=== PATIENT | male | born 1955 | race Hispanic/Latino ===

== ENCOUNTER 2020-11-09 19:42 | Observation (INO) | payer OTHER ==
[~2020-11-09] VITALS: Ht 180.3 cm; Wt 112.5 kg
[2020-11-09] MEDS ORDERED: ASPIRIN 81 MG CHEW TAB PO ONE (20:15)
[2020-11-09 20:29] LABS: BASOPHILS % 0.5 % (0.0-1.0); EOSINOPHILS # (AUTO) 0.1 (0.0-0.4); EOSINOPHILS % 1.9 % (0.0-6.0); HEMATOCRIT 46.4 % (38.2-49.6); HEMOGLOBIN 15.7 g/dL (14.0-18.0); LYMPHOCYTES # (AUTO) 2.5 (1.0-3.2); LYMPHOCYTES % 33.2 % (18.0-39.1); MEAN CORPUSCULAR HEMOGLOBIN 29.8 pg (28-32); MEAN CORPUSCULAR HGB CONC 33.8 g/dL (31-35); MEAN CORPUSCULAR VOLUME 88.2 fL (81-99); MONOCYTES # (AUTO) 0.6 (0.2-0.8); MONOCYTES % 7.7 % (4.4-11.3); NEUTROPHILS # (AUTO) 4.2 (2.1-6.9); NEUTROPHILS % 55.9 % (38.7-80.0); PLATELET COUNT 294 x10e3/uL (140-360); RED BLOOD COUNT 5.26 x10e6/uL (4.3-5.7); RED CELL DISTRIBUTION WIDTH 13.1 % (11.7-14.4)
[2020-11-09 20:45] LABS: ALBUMIN 4.1 g/dL (3.5-5.0); ALBUMIN/GLOBULIN RATIO 1.1 (0.8-2.0); ANION GAP 13.1 mmol/L (8-16); CALCIUM 9.3 mg/dL (8.4-10.2); CREATININE, SERUM 0.77 mg/dL (0.72-1.25); POTASSIUM 4.1 mmol/L (3.5-5.1)
[2020-11-09 20:52] LABS: CREATINE KINASE MB 1.3 ng/mL (0-5.0)
[2020-11-09] MEDS ORDERED: IOPAMIDOL 370 MG/ML 200 ML INFUS..BTL INJ ONE (21:24)
[2020-11-09] MEDS ORDERED: SODIUM CHLORIDE 0.9% 50ML 50 ML ONE (21:24)
[2020-11-10] VITALS (13 sets, daily range): BP systolic 111–158; BP diastolic 67–92
[2020-11-10] MEDS ORDERED: ASPIRIN 81 MG CHEW TAB PO ONE (00:45)
[2020-11-10] MEDS ORDERED: MORPHINE SULFATE INJ 4 MG/ML INJ 1ML IV PRN (00:45)
[2020-11-10] MEDS: MORPHINE SULFATE INJ 4 MG/ML INJ 1ML IV PRN (01:46)
[2020-11-10] MEDS: ONDANSETRON HCL INJ 2MG/ML 2ML 2 MG/ML VIAL IV PRN (01:46)
[2020-11-10] MEDS ORDERED: LISINOPRIL5 MG PO (06:48)
[2020-11-10 08:12] LABS: CREATINE KINASE MB 1.9 ng/mL (0-5.0)
[2020-11-10] MEDS ORDERED: HEPARIN SOD (PORCINE) 1000 UNIT/ML 30ML ONE (09:53)
[2020-11-10] MEDS ORDERED: MIDAZOLAM HCL 2 MG/2 ML VIAL ONE (09:53)
[2020-11-10] MEDS ORDERED: LIDOCAINE HCL 2% LOCAL 20 ML VIAL ONE (09:54)
[2020-11-10] MEDS ORDERED: SODIUM CHLORIDE 0.9% 1000ML 1,000 ML ONE (09:54)
[2020-11-10] MEDS ORDERED: IOPAMIDOL 370 MG/ML 200 ML INFUS..BTL INJ ONE (09:54)
[2020-11-10] MEDS ORDERED: FENTANYL CITRATE/PF 100MCG/2 ML INJ ONE (09:54)
[2020-11-10] MEDS ORDERED: HEPARIN SOD/SOD CHLORIDE 2,000 ML ONE (09:54)
[2020-11-10] MEDS ORDERED: NITROGLYCERIN/D5W 200 MCG/ML 0 ML ONE (09:54)
[2020-11-10] MEDS: METOPROLOL SUCCINATE 25 MG TAB XL PO SCH (13:16)
[2020-11-10] MEDS: PANTOPRAZOLE SOD 40 MG TABEC PO SCH (13:17)
[2020-11-10 15:43] LABS: CREATINE KINASE MB 1.8 ng/mL (0-5.0)
[2020-11-11] VITALS (8 sets, daily range): BP systolic 122–148; BP diastolic 77–84
[2020-11-11 06:21] LABS: BASOPHILS % 0.4 % (0.0-1.0); EOSINOPHILS # (AUTO) 0.1 (0.0-0.4); EOSINOPHILS % 1.9 % (0.0-6.0); HEMATOCRIT 43.4 % (38.2-49.6); HEMOGLOBIN 14.3 g/dL (14.0-18.0); LYMPHOCYTES # (AUTO) 1.8 (1.0-3.2); LYMPHOCYTES % 24.2 % (18.0-39.1); MEAN CORPUSCULAR HEMOGLOBIN 29.8 pg (28-32); MEAN CORPUSCULAR HGB CONC 32.9 g/dL (31-35); MEAN CORPUSCULAR VOLUME 90.4 fL (81-99); MONOCYTES # (AUTO) 0.7 (0.2-0.8); NEUTROPHILS # (AUTO) 4.7 (2.1-6.9); NEUTROPHILS % 63.4 % (38.7-80.0); PLATELET COUNT 241 x10e3/uL (140-360); RED CELL DISTRIBUTION WIDTH 13.2 % (11.7-14.4)
[2020-11-11 07:33] LABS: ALBUMIN 3.7 g/dL (3.5-5.0); ALBUMIN/GLOBULIN RATIO 1.4 (0.8-2.0); ANION GAP 13.1 mmol/L (8-16); CALCIUM 8.8 mg/dL (8.4-10.2); CREATININE, SERUM 0.83 mg/dL (0.72-1.25); POTASSIUM 4.1 mmol/L (3.5-5.1)
[2020-11-11] MEDS: METOPROLOL SUCCINATE 25 MG TAB XL PO SCH (08:28)
[2020-11-11] MEDS: PANTOPRAZOLE SOD 40 MG TABEC PO SCH (08:28)
[2020-11-11] MEDS: ONDANSETRON HCL INJ 2MG/ML 2ML 2 MG/ML VIAL IV PRN (08:31)
[2020-11-11] MEDS: MORPHINE SULFATE INJ 4 MG/ML INJ 1ML IV PRN (08:31)
[2020-11-11] MEDS ORDERED: PANTOPRAZOLE SO40 MG PO (08:34)
[2020-11-11] MEDS ORDERED: TOPROL XL25 MG PO (08:34)
[2020-11-11 12:38] LABS: CHOL/HDL RATIO 4.2 (3.9-4.7)
== END 2020-11-11 10:35 | disposition home or self-care (01) ==
LOC: ER 20:10 → ERHOLD 11-10 00:47 → MED/SURG 11-10 02:08
PROVIDERS: ADMIT Internal Medicine; ATTEND Internal Medicine
DX: I25.110 Atherosclerotic heart disease of native coronary artery with unstable angina pectoris (principal); I24.9 Acute ischemic heart disease, unspecified; I10 Essential (primary) hypertension; I73.9 Peripheral vascular disease, unspecified; Z20.822 Contact with and (suspected) exposure to COVID-19; E66.9 Obesity, unspecified; Z68.34 Body mass index [BMI] 34.0-34.9, adult; I77.811 Abdominal aortic ectasia; M54.10 Radiculopathy, site unspecified
CPT/HCPCS: 36415; 71260; 80053; 80061; 82550; 82553; 83880; 84484; 85025; 85379; 93005; 93306; 93458; 99152; 99153; 99284; C1760; C1766; C1769; C1887; G0378; J1644; J2001; J2250; J2270; J2405; J3010; J7030; Q9967; U0002

== ENCOUNTER 2021-06-14 06:40 | Observation (INO) | payer OTHER ==
[2021-06-11 12:59] LABS: BASOPHILS % 0.4 % (0.0-1.0); EOSINOPHILS # (AUTO) 0.1 (0.0-0.4); EOSINOPHILS % 1.3 % (0.0-6.0); HEMATOCRIT 46.7 % (38.2-49.6); HEMOGLOBIN 15.9 g/dL (14.0-18.0); LYMPHOCYTES % 21.9 % (18.0-39.1); MEAN CORPUSCULAR HEMOGLOBIN 29.8 pg (28-32); MEAN CORPUSCULAR VOLUME 87.6 fL (81-99); MONOCYTES # (AUTO) 0.8 (0.2-0.8); MONOCYTES % 8.3 % (4.4-11.3); NEUTROPHILS # (AUTO) 6.2 (2.1-6.9); NEUTROPHILS % 67.3 % (38.7-80.0); PLATELET COUNT 283 x10e3/uL (140-360); RED BLOOD COUNT 5.33 x10e6/uL (4.3-5.7); RED CELL DISTRIBUTION WIDTH 12.9 % (11.7-14.4)
[~2021-06-14] VITALS: Ht 180.3 cm; Wt 118.8 kg
[~2021-06-14 06:40] MED LIST: ASPIRIN81 MG PO; LISINOPRIL5 MG PO; MOBIC7.5 MG PO; PANTOPRAZOLE SO40 MG PO; TOPROL XL25 MG PO
[2021-06-14] MEDS ORDERED: ROPIVACAINE 246.25 MG, EPINEPHRINE HCL 1:1000 1ML 0.5 MG, CLONIDINE HCL 0.08 MG, KETORO... INJ ONE ×5 (07:30)
[2021-06-14] MEDS ORDERED: TRANEXAMIC ACID 1,000 MG/10 ML ML ONE (07:45)
[2021-06-14] MEDS ORDERED: SODIUM CHLORIDE 0.9% 500ML 500 ML ONE (07:45)
[2021-06-14] MEDS ORDERED: Vancomycin IV 1,000 MG ONE (07:45)
[2021-06-14] MEDS ORDERED: DEXAMETHASONE SOD PHOS 10 MG/1 ML VIAL ONE (07:52)
[2021-06-14] MEDS ORDERED: CELECOXIB 200 MG CAP ONE (07:52)
[2021-06-14] MEDS ORDERED: SODIUM CHLORIDE 0.9% 50ML 100 ML ONE (07:53)
[2021-06-14] MEDS ORDERED: GABAPENTIN 300 MG CAP ONE (07:53)
[2021-06-14] MEDS ORDERED: PROPOFOL IV EMULSION 50 ML IV ONE (11:20)
[2021-06-14] MEDS ORDERED: ACETAMINOPHEN 1000 MG/100 ML 100 ML IV ONE (11:20)
[2021-06-14] MEDS ORDERED: DOCUSATE SODIUM 100 MG CAP PO PRN (12:00)
[2021-06-14] MEDS ORDERED: DIPHENHYDRAMINE HCL INJ 50 MG/ML VIAL IV PRN (12:00)
[2021-06-14] MEDS ORDERED: KETOROLAC TROMETHAMINE 30 MG/ML VIAL IV PRN (12:00)
[2021-06-14] MEDS ORDERED: HYDROCODONE/APAP 5MG-325MG TAB PO PRN (12:00)
[2021-06-14] MEDS ORDERED: ACETAMINOPHEN 650 MG SUPP PR PRN (12:00)
[2021-06-14] MEDS ORDERED: ONDANSETRON HCL INJ 2MG/ML 2ML 2 MG/ML VIAL IV PRN (12:00)
[2021-06-14] MEDS ORDERED: SODIUM CHLORIDE 0.9% 1000ML 1,000 ML IV SCH (12:00)
[2021-06-14] MEDS ORDERED: EPHEDRINE SULFATE INJ 50 MG/ML VIAL ONE (12:53)
[2021-06-14] MEDS ORDERED: PHENYLEPHRINE HCL 1% 10 MG/ML VIAL ONE (12:53)
[2021-06-14] MEDS ORDERED: PROPOFOL IV EMULSION 10 MG/ML 20 ML VIAL ONE (12:53)
[2021-06-14] MEDS ORDERED: ONDANSETRON HCL INJ 2MG/ML 2ML 2 MG/ML VIAL ONE (12:53)
[2021-06-14] MEDS ORDERED: POVIDONE IODINE 0.05% 0.05 % ML PO ONE (12:53)
[2021-06-14 14:14] VITALS: BP 102/61
[2021-06-14 14:17] VITALS: BP 102/61
[2021-06-14 14:22] VITALS: BP 102/61
[2021-06-14 15:17] VITALS: BP 115/69
[2021-06-14 16:26] VITALS: BP 115/69
[2021-06-14] MEDS: ASPIRIN 325 MG TAB PO SCH (16:26)
[2021-06-14] MEDS ORDERED: MIDAZOLAM HCL 2 MG/2 ML VIAL ONE (16:59)
[2021-06-14] MEDS ORDERED: FENTANYL CITRATE/PF 100MCG/2 ML INJ ONE (16:59)
[2021-06-14] MEDS ORDERED: CELECOXIB 100 MG CAP PO SCH (17:00)
[2021-06-14] MEDS ORDERED: ACETAMINOPHEN 1000 MG/100 ML IV PRN (18:00)
[2021-06-14 20:00] VITALS: BP_SYST 115; BP_SYST 133; BP_DIAS 69
[2021-06-14] MEDS: Cefazolin 1 GM in SODIUM CHLORIDE 0.9% 50ML 50 ML IV SCH (20:39)
[2021-06-14] MEDS: HYDROCODONE/APAP 7.5MG-325MG 1 EA TAB PO PRN (20:40)
[2021-06-14] MEDS ORDERED: ZOLPIDEM TARTRATE 5 MG TAB PO PRN (21:00)
[2021-06-15] VITALS: BP 118/75
[2021-06-15 04:00] VITALS: BP 110/74
[2021-06-15 05:38] LABS: BASOPHILS % 0.2 % (0.0-1.0); EOSINOPHILS % 0.1 % (0.0-6.0); HEMATOCRIT 40.4 % (38.2-49.6); HEMOGLOBIN 13.6 g/dL (14.0-18.0); LYMPHOCYTES # (AUTO) 1.7 (1.0-3.2); LYMPHOCYTES % 10.9 % (18.0-39.1); MEAN CORPUSCULAR HEMOGLOBIN 29.8 pg (28-32); MEAN CORPUSCULAR HGB CONC 33.7 g/dL (31-35); MEAN CORPUSCULAR VOLUME 88.4 fL (81-99); MONOCYTES # (AUTO) 1.4 (0.2-0.8); NEUTROPHILS # (AUTO) 12.4 (2.1-6.9); PLATELET COUNT 250 x10e3/uL (140-360); RED BLOOD COUNT 4.57 x10e6/uL (4.3-5.7); RED CELL DISTRIBUTION WIDTH 12.9 % (11.7-14.4)
[2021-06-15] MEDS: Cefazolin 1 GM in SODIUM CHLORIDE 0.9% 50ML 50 ML IV SCH (06:14)
[2021-06-15 06:15] LABS: ALBUMIN 3.5 g/dL (3.5-5.0); ALBUMIN/GLOBULIN RATIO 1.2 (0.8-2.0); ANION GAP 11.4 mmol/L (8-16); CALCIUM 8.5 mg/dL (8.4-10.2); CREATININE, SERUM 0.84 mg/dL (0.72-1.25); POTASSIUM 4.4 mmol/L (3.5-5.1)
[2021-06-15] MEDS ORDERED: PANTOPRAZOLE SOD 40 MG TABEC PO SCH (07:30)
[2021-06-15] MEDS ORDERED: METOPROLOL SUCCINATE 25 MG TAB XL PO SCH (09:00)
[2021-06-15] MEDS ORDERED: LISINOPRIL 10 MG TAB PO SCH (09:00)
[2021-06-15 09:05] VITALS: BP 126/80
[2021-06-15] MEDS: ASPIRIN 325 MG TAB PO SCH (09:52)
[2021-06-15] MEDS: HYDROCODONE/APAP 7.5MG-325MG 1 EA TAB PO PRN (09:53)
[2021-06-15 12:30] VITALS: BP 134/80
[2021-06-15] MEDS ORDERED: ONDANSETRON HCL 4 MG ORAL DISINTEGRATING TAB PO PRN (12:45)
== END 2021-06-15 12:50 | disposition home or self-care (01) ==
LOC: OR 06:40 → PACU V 11:51 → MED/SURG 12:48
PROVIDERS: ADMIT Specialist; ATTEND Specialist
DX: M16.11 Unilateral primary osteoarthritis, right hip (principal); I25.10 Atherosclerotic heart disease of native coronary artery without angina pectoris; I11.9 Hypertensive heart disease without heart failure; E66.9 Obesity, unspecified; Z68.36 Body mass index [BMI] 36.0-36.9, adult; K21.9 Gastro-esophageal reflux disease without esophagitis; Z20.822 Contact with and (suspected) exposure to COVID-19; M54.16 Radiculopathy, lumbar region; I73.9 Peripheral vascular disease, unspecified; Z68.37 Body mass index [BMI] 37.0-37.9, adult
CPT/HCPCS: 36415; 71046; 72170; 80053; 85025; 86850; 86900; 86920; 94799; C1713; C1776; G0378; J0171; J0690; J1100; J1885; J2250; J2370; J2405; J2795; J3010; J3370; J7040; U0002

== ENCOUNTER 2021-08-24 17:16 | Observation (INO) | payer OTHER ==
[~2021-08-24] VITALS: Ht 180.3 cm; Wt 121.1 kg
[2021-08-24] MEDS ORDERED: ONDANSETRON HCL INJ 2MG/ML 2ML 2 MG/ML VIAL IV STA (17:34)
[2021-08-24] MEDS ORDERED: SODIUM CHLORIDE 0.9% 1000ML 1,000 ML IV ONE ×2 (17:45)
[2021-08-24 18:02] LABS: BASOPHILS # (AUTO) 0.1 (0.0-0.1); BASOPHILS % 0.5 % (0.0-1.0); EOSINOPHILS # (AUTO) 0.1 (0.0-0.4); EOSINOPHILS % 0.4 % (0.0-6.0); HEMATOCRIT 47.3 % (38.2-49.6); HEMOGLOBIN 15.8 g/dL (14.0-18.0); LYMPHOCYTES # (AUTO) 3.1 (1.0-3.2); LYMPHOCYTES % 20.4 % (18.0-39.1); MEAN CORPUSCULAR HEMOGLOBIN 29.8 pg (28-32); MEAN CORPUSCULAR HGB CONC 33.4 g/dL (31-35); MEAN CORPUSCULAR VOLUME 89.1 fL (81-99); MONOCYTES # (AUTO) 1.4 (0.2-0.8); MONOCYTES % 9.2 % (4.4-11.3); NEUTROPHILS # (AUTO) 10.3 (2.1-6.9); PLATELET COUNT 335 x10e3/uL (140-360); RED BLOOD COUNT 5.31 x10e6/uL (4.3-5.7); RED CELL DISTRIBUTION WIDTH 13.2 % (11.7-14.4)
[2021-08-24] MEDS ORDERED: ADENOSINE 6MG/2ML 3 ML ONE (18:09)
[2021-08-24] MEDS ORDERED: ADENOSINE 6 MG/2 ML VIAL IV ONE ×2 (18:15)
[2021-08-24 18:18] LABS: ALBUMIN 4.1 g/dL (3.5-5.0); ALBUMIN/GLOBULIN RATIO 1.2 (0.8-2.0); ANION GAP 20.1 mmol/L (8-16); CALCIUM 9.1 mg/dL (8.4-10.2); CREATININE, SERUM 1.95 mg/dL (0.72-1.25); POTASSIUM 4.1 mmol/L (3.5-5.1)
[2021-08-24 18:24] LABS: CREATINE KINASE MB 2.3 ng/mL (0-5.0)
[2021-08-24 18:57] LABS: CLARITY,URINE SL CLOUDY (CLEAR); COLOR,URINE YELLOW (YELLOW)
[2021-08-24 18:58] LABS: KETONES,URINE 1+ (NEGATIVE); LEUKOCYTE ESTERASE ,URINE NEGATIVE (NEGATIVE); NITRITE,URINE NEGATIVE (NEGATIVE); PROTEIN,URINE DIPSTICK 1+ (NEGATIVE); URINE UROBILINOGEN 1 mg/dL (0.2 - 1)
[2021-08-24] MEDS ORDERED: ONDANSETRON HCL INJ 2MG/ML 2ML 2 MG/ML VIAL IV PRN ×2 (19:00→23:30)
[2021-08-24 19:08] LABS: AMORPHOUS SEDIMENT,URINE MODERATE (FEW); BACTERIA,URINE MODERATE /HPF
[2021-08-24] MEDS: SODIUM CHLORIDE 0.9% 1000ML 1,000 ML IV SCH (22:54)
[2021-08-24 23:00] VITALS: BP 141/81
[2021-08-24 23:25] VITALS: BP 141/81
[2021-08-24] MEDS ORDERED: ACETAMINOPHEN 325 MG TAB PO PRN (23:30)
[2021-08-25 04:32] VITALS: BP 115/79
[2021-08-25 05:52] LABS: BASOPHILS # (AUTO) 0.1 (0.0-0.1); BASOPHILS % 0.8 % (0.0-1.0); EOSINOPHILS # (AUTO) 0.2 (0.0-0.4); EOSINOPHILS % 2.6 % (0.0-6.0); HEMATOCRIT 40.2 % (38.2-49.6); HEMOGLOBIN 13.4 g/dL (14.0-18.0); LYMPHOCYTES # (AUTO) 2.1 (1.0-3.2); LYMPHOCYTES % 32.1 % (18.0-39.1); MEAN CORPUSCULAR HGB CONC 33.3 g/dL (31-35); MEAN CORPUSCULAR VOLUME 89.9 fL (81-99); MONOCYTES # (AUTO) 0.7 (0.2-0.8); NEUTROPHILS # (AUTO) 3.4 (2.1-6.9); NEUTROPHILS % 51.7 % (38.7-80.0); PLATELET COUNT 229 x10e3/uL (140-360); RED BLOOD COUNT 4.47 x10e6/uL (4.3-5.7); RED CELL DISTRIBUTION WIDTH 13.3 % (11.7-14.4)
[2021-08-25 05:57] LABS: INR 1.03; PROTHROMBIN TIME 14.4 seconds (11.9-14.5)
[2021-08-25 05:58] LABS: PARTIAL THROMBOPLASTIN TIME 34.8 seconds (23.8-35.5)
[2021-08-25] MEDS ORDERED: HEPARIN SOD (PORCINE) 5,000 UNIT/ML VIAL SC SCH (06:00)
[2021-08-25 06:08] LABS: ALBUMIN 3.3 g/dL (3.5-5.0); ALBUMIN/GLOBULIN RATIO 1.2 (0.8-2.0); CALCIUM 7.9 mg/dL (8.4-10.2); CREATININE, SERUM 0.76 mg/dL (0.72-1.25)
[2021-08-25] MEDS: SODIUM CHLORIDE 0.9% 1000ML 1,000 ML IV SCH ×2 (06:12→11:00)
[2021-08-25 06:20] LABS: CREATINE KINASE MB 4.2 ng/mL (0-5.0)
[2021-08-25] MEDS ORDERED: PANTOPRAZOLE SOD 40 MG TABEC PO SCH (07:30)
[2021-08-25 08:00] VITALS: BP 137/76
[2021-08-25 08:31] VITALS: BP 115/79
[2021-08-25] MEDS ORDERED: SENNOSIDES 8.6 MG TAB PO SCH (09:00)
[2021-08-25] MEDS ORDERED: DOCUSATE SODIUM 100 MG CAP PO SCH (09:00)
[2021-08-25] MEDS ORDERED: TOPROL XL25 MG PO (09:45)
== END 2021-08-25 13:11 | disposition home or self-care (01) ==
LOC: ER 17:22 → ERHOLD 19:03 → MED/SURG2 22:55
PROVIDERS: ADMIT Internal Medicine; ATTEND Internal Medicine
DX: M62.82 Rhabdomyolysis (principal); N17.9 Acute kidney failure, unspecified; E86.0 Dehydration; I10 Essential (primary) hypertension; X30.XXXA Exposure to excessive natural heat, initial encounter; Y93.89 Activity, other specified; I11.0 Hypertensive heart disease with heart failure; I50.32 Chronic diastolic (congestive) heart failure; Z20.822 Contact with and (suspected) exposure to COVID-19; I25.10 Atherosclerotic heart disease of native coronary artery without angina pectoris; Z96.641 Presence of right artificial hip joint; M16.11 Unilateral primary osteoarthritis, right hip; E66.9 Obesity, unspecified; Z68.37 Body mass index [BMI] 37.0-37.9, adult; D64.9 Anemia, unspecified; R77.8 Other specified abnormalities of plasma proteins; I95.9 Hypotension, unspecified
CPT/HCPCS: 36415; 71045; 80053; 81001; 82550; 82553; 83605; 83690; 84484; 85025; 85610; 85730; 87040; 93005; 93306; 96361; 99284; G0378; J0153; J1644; J2405; J7030

== ENCOUNTER 2021-08-30 12:11 | Observation (INO) | payer OTHER ==
[~2021-08-30] VITALS: Ht 180.3 cm; Wt 121.1 kg
[2021-08-30 13:50] LABS: BASOPHILS # (AUTO) 0.1 (0.0-0.1); BASOPHILS % 0.5 % (0.0-1.0); EOSINOPHILS # (AUTO) 0.1 (0.0-0.4); EOSINOPHILS % 0.8 % (0.0-6.0); HEMATOCRIT 48.3 % (38.2-49.6); HEMOGLOBIN 16.3 g/dL (14.0-18.0); LYMPHOCYTES # (AUTO) 1.9 (1.0-3.2); LYMPHOCYTES % 17.1 % (18.0-39.1); MEAN CORPUSCULAR HEMOGLOBIN 29.7 pg (28-32); MEAN CORPUSCULAR HGB CONC 33.7 g/dL (31-35); MEAN CORPUSCULAR VOLUME 88.1 fL (81-99); MONOCYTES # (AUTO) 0.8 (0.2-0.8); MONOCYTES % 7.6 % (4.4-11.3); NEUTROPHILS # (AUTO) 8.1 (2.1-6.9); NEUTROPHILS % 72.6 % (38.7-80.0); PLATELET COUNT 336 x10e3/uL (140-360); RED BLOOD COUNT 5.48 x10e6/uL (4.3-5.7)
[2021-08-30 14:14] LABS: ALBUMIN 4.3 g/dL (3.5-5.0); ALBUMIN/GLOBULIN RATIO 1.1 (0.8-2.0); CALCIUM 9.7 mg/dL (8.4-10.2); CREATININE, SERUM 1.09 mg/dL (0.72-1.25)
[2021-08-30 14:41] LABS: ABG HCO3 23 mmol/L (22-26); ABG PCO2 38 mmHg (35-45); ABG PH 7.39 (7.35-7.45); ABG PO2 79 mmHg (80-105); ABG TCO2 24
[2021-08-30 15:00] LABS: THYROID STIMULATING HORMONE 1.304 uIU/mL (0.350-4.940)
[2021-08-30] MEDS ORDERED: IOPAMIDOL 370 MG/ML 100 ML INFUS..BTL INJ ONE (15:11)
[2021-08-30 15:30] LABS: AMPHETAMINES SCREEN,URINE NEGATIVE (NEGATIVE); BENZODIAZEPINES SCREEN,URINE NEGATIVE (NEGATIVE); PHENCYCLIDINE SCREEN,URINE NEGATIVE (NEGATIVE)
[2021-08-30] MEDS ORDERED: ONDANSETRON HCL INJ 2MG/ML 2ML 2 MG/ML VIAL IV PRN (17:30)
[2021-08-30] MEDS ORDERED: SODIUM CHLORIDE 0.9% 1000ML 1,000 ML IV SCH (17:30)
[2021-08-30] MEDS ORDERED: METOPROLOL SUCCINATE 25 MG TAB XL PO SCH (20:00)
[2021-08-30] MEDS ORDERED: ASPIRIN 81 MG CHEW TAB PO STA (20:38)
[2021-08-30] MEDS ORDERED: ACETAMINOPHEN 325 MG TAB PO PRN (20:45)
[2021-08-30 20:47] LABS: CREATINE KINASE 83 IU/L (30-200)
[2021-08-30 21:01] VITALS: BP 130/95
[2021-08-30] MEDS: SODIUM CHLORIDE 0.9% 1000ML 1,000 ML IV SCH (21:40)
[2021-08-30 22:35] VITALS: BP 130/95
[2021-08-30 22:47] VITALS: BP 130/95
[2021-08-31 00:19] VITALS: BP 128/78
[2021-08-31] MEDS: SODIUM CHLORIDE 0.9% 1000ML 1,000 ML IV SCH (04:42)
[2021-08-31 06:19] LABS: BASOPHILS % 0.6 % (0.0-1.0); EOSINOPHILS # (AUTO) 0.2 (0.0-0.4); EOSINOPHILS % 2.8 % (0.0-6.0); HEMATOCRIT 44.7 % (38.2-49.6); HEMOGLOBIN 14.8 g/dL (14.0-18.0); LYMPHOCYTES # (AUTO) 1.8 (1.0-3.2); LYMPHOCYTES % 26.5 % (18.0-39.1); MEAN CORPUSCULAR HEMOGLOBIN 29.4 pg (28-32); MEAN CORPUSCULAR HGB CONC 33.1 g/dL (31-35); MEAN CORPUSCULAR VOLUME 88.9 fL (81-99); MONOCYTES # (AUTO) 0.7 (0.2-0.8); MONOCYTES % 9.9 % (4.4-11.3); NEUTROPHILS # (AUTO) 4.1 (2.1-6.9); NEUTROPHILS % 58.9 % (38.7-80.0); PLATELET COUNT 297 x10e3/uL (140-360); RED BLOOD COUNT 5.03 x10e6/uL (4.3-5.7); RED CELL DISTRIBUTION WIDTH 13.2 % (11.7-14.4)
[2021-08-31 06:33] VITALS: BP 118/76
[2021-08-31 07:19] LABS: ANION GAP 14.8 mmol/L (8-16); CALCIUM 8.5 mg/dL (8.4-10.2); CREATININE, SERUM 0.8 mg/dL (0.72-1.25); POTASSIUM 3.8 mmol/L (3.5-5.1)
[2021-08-31 07:45] LABS: CREATINE KINASE MB 1.8 ng/mL (0-5.0)
[2021-08-31 08:06] VITALS: BP 126/81
[2021-08-31 08:53] LABS: CLARITY,URINE CLEAR (CLEAR); COLOR,URINE YELLOW (YELLOW); KETONES,URINE NEGATIVE (NEGATIVE); LEUKOCYTE ESTERASE ,URINE NEGATIVE (NEGATIVE); NITRITE,URINE NEGATIVE (NEGATIVE); PROTEIN,URINE DIPSTICK NEGATIVE (NEGATIVE); URINE UROBILINOGEN 1 mg/dL (0.2 - 1)
[2021-08-31] MEDS ORDERED: MELOXICAM 7.5 MG TAB PO SCH (09:00)
[2021-08-31] MEDS ORDERED: ASPIRIN 81 MG CHEW TAB PO SCH (09:00)
[2021-08-31] MEDS ORDERED: LISINOPRIL 10 MG TAB PO SCH (09:00)
[2021-08-31 09:16] LABS: BACTERIA,URINE RARE /HPF; WBC,URINE (MAN) 0-5 /HPF (0-5)
[2021-08-31 09:17] LABS: EPITHELIAL CELLS,URINE RARE /LPF
[2021-08-31] MEDS ORDERED: ASPIRIN CHEW81 MG PO (09:34)
== END 2021-08-31 11:04 | disposition home or self-care (01) ==
LOC: ER 12:30 → ERHOLD 17:24 → MED/SURG2 20:31
PROVIDERS: ADMIT Internal Medicine; ATTEND Internal Medicine
DX: T67.5XXA Heat exhaustion, unspecified, initial encounter (principal); I11.0 Hypertensive heart disease with heart failure; E86.0 Dehydration; I25.10 Atherosclerotic heart disease of native coronary artery without angina pectoris; I50.32 Chronic diastolic (congestive) heart failure; I77.819 Aortic ectasia, unspecified site; R91.1 Solitary pulmonary nodule; E04.1 Nontoxic single thyroid nodule; E66.01 Morbid (severe) obesity due to excess calories; I73.9 Peripheral vascular disease, unspecified; I47.1 Supraventricular tachycardia; M16.11 Unilateral primary osteoarthritis, right hip; Z20.822 Contact with and (suspected) exposure to COVID-19
CPT/HCPCS: 36415; 36600; 71045; 71260; 80048; 80053; 80307; 81001; 82550; 82553; 82805; 84443; 84484; 85025; 85379; 93005; 94799; 96361; 99284; G0378; J7030; Q9967